=== PATIENT | female | born 1945 | race Caucasian/White ===

== ENCOUNTER 2019-11-08 07:46 | Inpatient (IN) | payer MEDICARE, MEDICAID ==
[~2019-11-08] VITALS: Ht 170.2 cm; Wt 74.8 kg
[2019-11-08] MEDS ORDERED: SODIUM CHLORIDE 0.9% 500 ML IV ONE (08:07)
[2019-11-08] MEDS ORDERED: LEVOFLOXACIN 500MG PREMIX 100 ML IV ONE (08:15)
[2019-11-08] MEDS ORDERED: ACETAMINOPHEN 650MG SUPP PR ONE (08:30)
[2019-11-08 09:34] LABS: HEMATOCRIT. 36.3 % (36.0-48.0); HEMOGLOBIN. 12.1 g/dL (12.0-16.0); MEAN CORPUSCULAR HEMOGLOBIN 26.9 pg (28.0-32.0); MEAN CORPUSCULAR VOLUME 80.9 fL (81.0-99.0); MEAN PLATELET VOLUME 11.8 fl (7.4-10.4); RED BLOOD CELL COUNT 4.49 mill/uL (4.2-5.4); RED CELL DISTRIBUTION WIDTH 15.8 % (11.6-14.6)
[2019-11-08 09:40] LABS: CLARITY URINE TURBID (CLEAR); COLOR URINE ORANGE (YELLOW); KETONES URINE NEGATIVE (NEGATIVE); LEUKOCYTE ESTERASE URINE 3+ (NEGATIVE); NITRITE URINE POSITIVE (NEGATIVE); OCCULT BLOOD URINE 3+ (NEGATIVE); PH URINE 7.5 (4.5-8.0); PROTEIN URINE 3+ (NEGATIVE); SPECIFIC GRAVITY URINE 1.024 (1.005-1.030)
[2019-11-08 09:45] LABS: CHLORIDE 106 mEq/L (98-107)
[2019-11-08 09:54] LABS: CREATINE KINASE 46 IU/L (26-192)
[2019-11-08 09:58] LABS: D-DIMER 6.46 mg/L FEU (<0.50); INR 1.2; PROTHROMBIN TIME 12.5 sec (9.6-11.0)
[2019-11-08 10:31] LABS: PLATELET ESTIMATE MARKEDLY DECREASED
[2019-11-08 10:32] LABS: PLATELET 47 x1000/uL (130-400)
[2019-11-08] MEDS ORDERED: IPRATROPIUM/ALBUTEROL 0.5-3(2.5)MG/3ML NEB NEB PRN (10:45)
[2019-11-08] MEDS ORDERED: LORAZEPAM 2MG/ML CPJ IV PRN (10:45)
[2019-11-08] MEDS ORDERED: GUAIFENESIN 200MG/10ML SUGAR FREE UDC PO PRN (10:45)
[2019-11-08] MEDS ORDERED: ENOXAPARIN 40MG/0.4ML SYR SUBCUT SCH (10:45)
[2019-11-08] MEDS ORDERED: CLONIDINE 0.1MG TABLET PO PRN (10:45)
[2019-11-08] MEDS ORDERED: MORPHINE SULFATE 2 MG/ML CPJ (NOT FOR IM USE) IV PRN (10:45)
[2019-11-08] MEDS ORDERED: MAGNESIUM/ALUMINUM HYDROXIDE/SIMETHICONE 30ML UDC PO PRN (10:45)
[2019-11-08] MEDS ORDERED: HYDROCODONE/ACETAMINOPHEN 5/325MG TABLET PO PRN (10:45)
[2019-11-08] MEDS ORDERED: ACETAMINOPHEN 325MG TABLET PO PRN (10:45)
[2019-11-08] MEDS ORDERED: ONDANSETRON HCL 4MG/2ML INJ IV PRN (10:45)
[2019-11-08] MEDS ORDERED: NA PHOS,M-B/NA PHOS,DI-BA ENEMA 118ML PR PRN (10:45)
[2019-11-08] MEDS ORDERED: DIPHENHYDRAMINE 50MG/ML VIAL IV PRN (10:45)
[2019-11-08] MEDS ORDERED: DOCUSATE SODIUM 100MG CAPSULE PO PRN (10:45)
[2019-11-08] MEDS ORDERED: PIPERACILLIN/TAZ 3.375G PREMIX 50 ML IV NR (11:15)
[2019-11-08] MEDS ORDERED: PIPERACILLIN/TAZOBACTAM 3.375 G in DEXT 5% WATER 100 ML IV SCH (12:30)
[2019-11-08] MEDS: SODIUM CHLORIDE 0.45% 1,000 ML IV SCH (13:47)
[2019-11-08] MEDS ORDERED: PHENYLEPHRINE 10 MG in DEXT 5% WATER 249 ML IV PRN (17:45)
[2019-11-08] MEDS ORDERED: PIPERACILLIN/TAZOBACTAM 3.375 G in DEXT 5% WATER 100 ML IV NR (21:00)
[2019-11-08 21:29] LABS: HEMOGLOBIN 11.1 g/dL (12.0-16.0); INR 1.2; MEAN CORPUSCULAR HEMOGLOBIN 27.9 pg (28.0-32.0); MEAN CORPUSCULAR VOLUME 82.5 fL (81.0-99.0); PLATELET 69 x1000/uL (130-400); PROTHROMBIN TIME 13.4 sec (9.6-11.0); RED CELL DISTRIBUTION WIDTH 16.2 % (11.6-14.6)
[2019-11-08] MEDS ORDERED: VANCOMYCIN 1 G PREMIX 200 ML IV ONE (21:30)
[2019-11-09 04:01] LABS: T4 FREE 1.28 ng/dL (0.76-1.46)
[2019-11-09 04:06] LABS: HEMOGLOBIN. 13.1 g/dL (12.0-16.0); MEAN CORPUSCULAR HEMOGLOBIN 27.1 pg (28.0-32.0); MEAN CORPUSCULAR VOLUME 82.6 fL (81.0-99.0); MEAN PLATELET VOLUME 11.3 fl (7.4-10.4); RED BLOOD CELL COUNT 4.84 mill/uL (4.2-5.4); RED CELL DISTRIBUTION WIDTH 16.1 % (11.6-14.6)
[2019-11-09 04:11] LABS: PLATELET 48 x1000/uL (130-400)
[2019-11-09] MEDS ORDERED: PIPERACILLIN/TAZ 3.375G PREMIX 50 ML IV SCH ×2 (05:00→08:15)
[2019-11-09 06:26] LABS: ATYPICAL LYMPHOCYTES 1; PLATELET ESTIMATE MARKEDLY DECREASED
[2019-11-09 08:00] VITALS: BP 107/58
[2019-11-09] MEDS ORDERED: PIPERACILLIN/TAZOBACTAM 3.375 G in DEXT 5% WATER 100 ML IV SCH (08:15)
[2019-11-09] MEDS ORDERED: ENOXAPARIN 30MG/0.3ML SYR SUBCUT SCH (09:00)
[2019-11-09] MEDS ORDERED: ASPIRIN 81MG EC TABLET PO SCH (09:00)
[2019-11-09] MEDS ORDERED: DEXTROSE 50% WATER 50ML SYRINGE IV PRN (09:30)
[2019-11-09] MEDS: PIPERACILLIN/TAZOBACTAM 2.25 G in DEXTROSE 5% WATER 50 ML IV SCH ×3 (10:44→21:39)
[2019-11-09] MEDS: SODIUM CHLORIDE 0.45% 1,000 ML IV SCH (10:49)
[2019-11-09 10:57] LABS: CHLORIDE 108 mEq/L (98-107)
[2019-11-09 11:04] LABS: LDL CHOLESTEROL 25 mg/dL (5-100)
[2019-11-09 11:05] LABS: HDL CHOLESTEROL 7 mg/dL (40-59)
[2019-11-09] MEDS: BLOOD SUGAR DIAGNOSTIC STRIP TEST SCH ×3 (11:30→21:54)
[2019-11-09] MEDS: VANCOMYCIN 750 MG PREMIX 150 ML IV SCH (12:28)
[2019-11-09] MEDS: INSULIN LISPRO (LOW DOSE) 100 UNITS/ML SUBCUT SCH ×3 (12:34→22:23)
[2019-11-09] MEDS ORDERED: ATOR-2 MT (16:33)
[2019-11-09] MEDS ORDERED: BENZ0.5T43 MT (16:33)
[2019-11-09] MEDS ORDERED: DOCU250C69 PO (16:34)
[2019-11-09] MEDS ORDERED: FOLI0.4T2 MT (16:38)
[2019-11-09] MEDS ORDERED: LAM1 MT (16:38)
[2019-11-09] MEDS ORDERED: MULT1CAP44 MT (16:38)
[2019-11-09] MEDS ORDERED: METO25TA6 MT (16:38)
[2019-11-09 20:00] VITALS: BP 117/44
[2019-11-09] MEDS ORDERED: ATORVASTATIN CALCIUM 10MG TABLET PO SCH (21:00)
[2019-11-09] MEDS: METOPROLOL TARTRATE 25MG TABLET PO SCH (21:00)
[2019-11-09] MEDS: ATORVASTATIN CALCIUM 20MG TABLET PO SCH (21:39)
[2019-11-10] VITALS: BP 102/29
[2019-11-10 04:00] VITALS: BP 143/37
[2019-11-10] MEDS: PIPERACILLIN/TAZOBACTAM 2.25 G in DEXTROSE 5% WATER 50 ML IV SCH ×4 (05:42→22:47)
[2019-11-10 06:17] LABS: BASOPHILS % 0.2 % (0.0-2.0); EOSINOPHILS % 0.8 % (0.0-5.0); HEMATOCRIT. 31.6 % (36.0-48.0); HEMOGLOBIN. 10.6 g/dL (12.0-16.0); LYMPHOCYTES % 8.8 % (20.0-50.0); MEAN CORPUSCULAR HEMOGLOBIN 27.2 pg (28.0-32.0); MEAN CORPUSCULAR VOLUME 81.1 fL (81.0-99.0); MEAN PLATELET VOLUME 10.7 fl (7.4-10.4); MONOCYTES % 7.4 % (2.0-8.0); NEUTROPHILS % 82.8 % (40.0-76.0); RED BLOOD CELL COUNT 3.89 mill/uL (4.2-5.4); RED CELL DISTRIBUTION WIDTH 16.1 % (11.6-14.6)
[2019-11-10] MEDS: VANCOMYCIN 750 MG PREMIX 150 ML IV SCH (06:42)
[2019-11-10] MEDS: BLOOD SUGAR DIAGNOSTIC STRIP TEST SCH ×4 (06:42→21:00)
[2019-11-10 07:31] LABS: PLATELET 49 x1000/uL (130-400)
[2019-11-10 08:00] VITALS: BP 106/62
[2019-11-10] MEDS: SODIUM CHLORIDE 0.45% 1,000 ML IV SCH (08:06)
[2019-11-10] MEDS: INSULIN LISPRO (LOW DOSE) 100 UNITS/ML SUBCUT SCH ×4 (08:36→21:00)
[2019-11-10] MEDS: METOPROLOL TARTRATE 25MG TABLET PO SCH ×2 (08:43→21:00)
[2019-11-10] MEDS ORDERED: POTASSIUM CHLORIDE 20MEQ/PACKET PO SCH (09:00)
[2019-11-10 11:50] LABS: CREATINE KINASE 17 IU/L (26-192)
[2019-11-10 12:00] VITALS: BP 118/27
[2019-11-10 16:00] VITALS: BP 105/26
[2019-11-10 20:00] VITALS: BP 121/39
[2019-11-10] MEDS: ATORVASTATIN CALCIUM 20MG TABLET PO SCH (22:46)
[2019-11-11] VITALS: BP 106/70
[2019-11-11] MEDS: VANCOMYCIN 750 MG PREMIX 150 ML IV SCH ×2 (00:18→22:50)
[2019-11-11] MEDS: SODIUM CHLORIDE 0.45% 1,000 ML IV SCH ×2 (03:42→22:51)
[2019-11-11] MEDS: PIPERACILLIN/TAZOBACTAM 2.25 G in DEXTROSE 5% WATER 50 ML IV SCH ×3 (03:43→19:30)
[2019-11-11 04:00] VITALS: BP 108/38
[2019-11-11] MEDS: INSULIN LISPRO (LOW DOSE) 100 UNITS/ML SUBCUT SCH ×4 (06:30→21:00)
[2019-11-11] MEDS: BLOOD SUGAR DIAGNOSTIC STRIP TEST SCH ×4 (06:31→21:00)
[2019-11-11 07:26] LABS: BASOPHILS % 0.7 % (0.0-2.0); HEMATOCRIT. 32.7 % (36.0-48.0); HEMOGLOBIN. 10.8 g/dL (12.0-16.0); LYMPHOCYTES % 9.9 % (20.0-50.0); MEAN CORPUSCULAR HEMOGLOBIN 27.2 pg (28.0-32.0); MEAN CORPUSCULAR VOLUME 82.3 fL (81.0-99.0); MEAN PLATELET VOLUME 10.2 fl (7.4-10.4); NEUTROPHILS % 81.4 % (40.0-76.0); PLATELET 56 x1000/uL (130-400); RED BLOOD CELL COUNT 3.98 mill/uL (4.2-5.4); RED CELL DISTRIBUTION WIDTH 16.5 % (11.6-14.6)
[2019-11-11 08:00] VITALS: BP 116/41
[2019-11-11] MEDS: METOPROLOL TARTRATE 25MG TABLET PO SCH ×2 (09:00→21:00)
[2019-11-11 12:00] VITALS: BP 117/39
[2019-11-11 16:00] VITALS: BP 105/36
[2019-11-11 21:03] VITALS: BP 117/37
[2019-11-11] MEDS: ATORVASTATIN CALCIUM 20MG TABLET PO SCH (22:51)
[2019-11-12 01:05] VITALS: BP 115/33
[2019-11-12 01:39] VITALS: BP 125/42
[2019-11-12] MEDS: PIPERACILLIN/TAZOBACTAM 2.25 G in DEXTROSE 5% WATER 50 ML IV SCH ×4 (01:43→21:44)
[2019-11-12 05:05] VITALS: BP 117/39
[2019-11-12] MEDS: BLOOD SUGAR DIAGNOSTIC STRIP TEST SCH ×4 (06:51→21:44)
[2019-11-12 06:57] LABS: BASOPHILS % 0.4 % (0.0-2.0); EOSINOPHILS % 1.5 % (0.0-5.0); HEMATOCRIT. 32.2 % (36.0-48.0); HEMOGLOBIN. 10.8 g/dL (12.0-16.0); LYMPHOCYTES % 9.9 % (20.0-50.0); MEAN CORPUSCULAR HEMOGLOBIN 27.5 pg (28.0-32.0); MONOCYTES % 6.8 % (2.0-8.0); NEUTROPHILS % 81.4 % (40.0-76.0); PLATELET 106 x1000/uL (130-400); RED BLOOD CELL COUNT 3.93 mill/uL (4.2-5.4); RED CELL DISTRIBUTION WIDTH 15.7 % (11.6-14.6)
[2019-11-12 08:00] VITALS: BP 124/56
[2019-11-12] MEDS: INSULIN LISPRO (LOW DOSE) 100 UNITS/ML SUBCUT SCH ×4 (09:48→21:44)
[2019-11-12] MEDS: VANCOMYCIN 750 MG PREMIX 150 ML IV SCH (12:13)
[2019-11-12 13:06] LABS: ANTI-NUCLEAR ANTIBODIES DIRECT Negative (Negative)
[2019-11-12 16:00] VITALS: BP 119/36
[2019-11-12 20:00] VITALS: BP 132/49
[2019-11-12] MEDS: ATORVASTATIN CALCIUM 20MG TABLET PO SCH (21:43)
[2019-11-13] VITALS: BP 133/48
[2019-11-13 04:00] VITALS: BP 130/43
[2019-11-13] MEDS: PIPERACILLIN/TAZOBACTAM 2.25 G in DEXTROSE 5% WATER 50 ML IV SCH ×2 (04:24→10:00)
[2019-11-13] MEDS: VANCOMYCIN 750 MG PREMIX 150 ML IV SCH (06:10)
[2019-11-13] MEDS: INSULIN LISPRO (LOW DOSE) 100 UNITS/ML SUBCUT SCH ×4 (06:18→22:37)
[2019-11-13] MEDS: BLOOD SUGAR DIAGNOSTIC STRIP TEST SCH ×4 (06:20→21:00)
[2019-11-13 06:48] LABS: BASOPHILS % 0.4 % (0.0-2.0); EOSINOPHILS % 1.9 % (0.0-5.0); HEMATOCRIT. 33.1 % (36.0-48.0); LYMPHOCYTES % 8.6 % (20.0-50.0); MEAN CORPUSCULAR HEMOGLOBIN 27.7 pg (28.0-32.0); NEUTROPHILS % 83.1 % (40.0-76.0); PLATELET 130 x1000/uL (130-400); RED BLOOD CELL COUNT 3.99 mill/uL (4.2-5.4); RED CELL DISTRIBUTION WIDTH 15.9 % (11.6-14.6)
[2019-11-13 08:00] VITALS: BP 121/61
[2019-11-13 12:00] VITALS: BP 121/54
[2019-11-13] MEDS ORDERED: CEFTRIAXONE 2 G PREMIX 50 ML IV SCH (16:00)
[2019-11-13] MEDS: CEFTRIAXONE 2 G in DEXTROSE 5% WATER 50 ML IV SCH (16:24)
[2019-11-13 20:00] VITALS: BP 136/39
[2019-11-13] MEDS ORDERED: ARIP5TAB58 PO (20:15)
[2019-11-13] MEDS ORDERED: BENZ1TAB7 PO (20:21)
[2019-11-13] MEDS ORDERED: TRAZ-251 PO (20:29)
[2019-11-13 22:00] VITALS: BP 118/40
[2019-11-13] MEDS: ATORVASTATIN CALCIUM 20MG TABLET PO SCH (22:21)
[2019-11-14] VITALS (16 sets, daily range): BP systolic 66–169; BP diastolic 25–96
[2019-11-14 06:57] LABS: BASOPHILS % 0.6 % (0.0-2.0); EOSINOPHILS % 1.6 % (0.0-5.0); HEMATOCRIT. 30.9 % (36.0-48.0); HEMOGLOBIN. 10.3 g/dL (12.0-16.0); LYMPHOCYTES % 10.9 % (20.0-50.0); MEAN CORPUSCULAR HEMOGLOBIN 27.3 pg (28.0-32.0); MEAN PLATELET VOLUME 9.7 fl (7.4-10.4); MONOCYTES % 6.7 % (2.0-8.0); NEUTROPHILS % 80.2 % (40.0-76.0); PLATELET 163 x1000/uL (130-400); RED BLOOD CELL COUNT 3.77 mill/uL (4.2-5.4); RED CELL DISTRIBUTION WIDTH 16.1 % (11.6-14.6)
[2019-11-14] MEDS: BLOOD SUGAR DIAGNOSTIC STRIP TEST SCH ×4 (07:30→21:00)
[2019-11-14] MEDS: INSULIN LISPRO (LOW DOSE) 100 UNITS/ML SUBCUT SCH ×4 (08:00→21:00)
[2019-11-14] MEDS: BENZTROPINE MESYLATE 1MG TABLET PO SCH (09:00)
[2019-11-14] MEDS: ARIPIPRAZOLE 5MG TABLET PO SCH (09:01)
[2019-11-14] MEDS ORDERED: LIDOCAINE HCL 1% 20ML VIAL (Pyxis) INJ ONE (10:19)
[2019-11-14] MEDS: CEFTRIAXONE 2 G in DEXTROSE 5% WATER 50 ML IV SCH (16:50)
[2019-11-14] MEDS: ATORVASTATIN CALCIUM 20MG TABLET PO SCH (22:20)
[2019-11-14] MEDS: TRAZODONE HCL 50MG TABLET PO SCH (22:21)
[2019-11-15] VITALS (12 sets, daily range): BP systolic 93–163; BP diastolic 23–107
[2019-11-15 07:23] LABS: BASOPHILS % 0.5 % (0.0-2.0); EOSINOPHILS % 1.7 % (0.0-5.0); HEMATOCRIT. 28.6 % (36.0-48.0); HEMOGLOBIN. 9.8 g/dL (12.0-16.0); LYMPHOCYTES % 9.9 % (20.0-50.0); MEAN CORPUSCULAR VOLUME 81.6 fL (81.0-99.0); MEAN PLATELET VOLUME 9.8 fl (7.4-10.4); MONOCYTES % 7.1 % (2.0-8.0); NEUTROPHILS % 80.8 % (40.0-76.0); PLATELET 195 x1000/uL (130-400); RED CELL DISTRIBUTION WIDTH 15.7 % (11.6-14.6)
[2019-11-15] MEDS: BENZTROPINE MESYLATE 1MG TABLET PO SCH (08:20)
[2019-11-15] MEDS: ARIPIPRAZOLE 5MG TABLET PO SCH (08:20)
[2019-11-15] MEDS: INSULIN LISPRO (LOW DOSE) 100 UNITS/ML SUBCUT SCH ×4 (08:21→21:17)
[2019-11-15] MEDS: BLOOD SUGAR DIAGNOSTIC STRIP TEST SCH ×4 (08:22→21:16)
[2019-11-15] MEDS: CEFTRIAXONE 2 G in DEXTROSE 5% WATER 50 ML IV SCH (17:06)
[2019-11-15] MEDS: ATORVASTATIN CALCIUM 20MG TABLET PO SCH (21:16)
[2019-11-15] MEDS: TRAZODONE HCL 50MG TABLET PO SCH (21:16)
[2019-11-16] VITALS (10 sets, daily range): BP systolic 121–159; BP diastolic 47–75
[2019-11-16 07:40] LABS: BASOPHILS % 0.4 % (0.0-2.0); EOSINOPHILS % 1.3 % (0.0-5.0); HEMATOCRIT. 30.6 % (36.0-48.0); HEMOGLOBIN. 10.1 g/dL (12.0-16.0); LYMPHOCYTES % 10.6 % (20.0-50.0); MEAN CORPUSCULAR HEMOGLOBIN 27.2 pg (28.0-32.0); MEAN CORPUSCULAR VOLUME 82.2 fL (81.0-99.0); MEAN PLATELET VOLUME 10.3 fl (7.4-10.4); MONOCYTES % 6.5 % (2.0-8.0); NEUTROPHILS % 81.2 % (40.0-76.0); PLATELET 210 x1000/uL (130-400); RED BLOOD CELL COUNT 3.72 mill/uL (4.2-5.4); RED CELL DISTRIBUTION WIDTH 15.9 % (11.6-14.6)
[2019-11-16] MEDS: BLOOD SUGAR DIAGNOSTIC STRIP TEST SCH ×2 (07:49→12:43)
[2019-11-16] MEDS: INSULIN LISPRO (LOW DOSE) 100 UNITS/ML SUBCUT SCH ×2 (07:49→12:52)
[2019-11-16] MEDS: BENZTROPINE MESYLATE 1MG TABLET PO SCH (09:11)
[2019-11-16] MEDS: ARIPIPRAZOLE 5MG TABLET PO SCH (09:11)
[2019-11-16] MEDS: CEFTRIAXONE 2 G in DEXTROSE 5% WATER 50 ML IV SCH (15:59)
== END 2019-11-16 16:57 | DRG 871 ==
LOC: ER 07:46 → 5WST 09:50 → ENRESERV 11-09 07:11 → EDBEDREQ 11-09 07:32 → 5EST 11-13 12:45
PROVIDERS: ADMIT Internal Medicine; ATTEND Internal Medicine
PROC: B54CZZA Ultrasonography of Left Lower Extremity Veins, Guidance (ICD-10-PCS; principal; 2019-11-14)
PROC: 05HY33Z Insertion of Infusion Device into Upper Vein, Percutaneous Approach (ICD-10-PCS; 2019-11-14)
DX: A40.1 Sepsis due to streptococcus, group B (principal); R65.21 Severe sepsis with septic shock; I21.4 Non-ST elevation (NSTEMI) myocardial infarction; N39.0 Urinary tract infection, site not specified; E46 Unspecified protein-calorie malnutrition; I38 Endocarditis, valve unspecified; I44.2 Atrioventricular block, complete; E87.2 Acidosis; N17.9 Acute kidney failure, unspecified; F32.9 Major depressive disorder, single episode, unspecified; F20.9 Schizophrenia, unspecified; F03.90 Unspecified dementia, unspecified severity, without behavioral disturbance, psychotic disturbance, mood disturbance, and anxiety; E78.00 Pure hypercholesterolemia, unspecified; D69.6 Thrombocytopenia, unspecified; E11.9 Type 2 diabetes mellitus without complications; D64.9 Anemia, unspecified; E78.5 Hyperlipidemia, unspecified; G40.909 Epilepsy, unspecified, not intractable, without status epilepticus; I12.9 Hypertensive chronic kidney disease with stage 1 through stage 4 chronic kidney disease, or unspecified chronic kidney disease; E11.22 Type 2 diabetes mellitus with diabetic chronic kidney disease; B96.4 Proteus (mirabilis) (morganii) as the cause of diseases classified elsewhere; N18.9 Chronic kidney disease, unspecified; R31.0 Gross hematuria; I44.0 Atrioventricular block, first degree; I25.10 Atherosclerotic heart disease of native coronary artery without angina pectoris; Z79.899 Other long term (current) drug therapy; Z03.818 Encounter for observation for suspected exposure to other biological agents ruled out
CPT/HCPCS: 36415; 71045; 76770; 76937; 80048; 80053; 80061; 80202; 81003; 82550; 82728; 82962; 83605; 83615; 83880; 84145; 84439; 84481; 84484; 85025; 85027; 85379; 85384; 86038; 86140; 86160; 86850; 86900; 87077; 87186; 87804; 93005; 93306; 99291; C1725; J0696; J1815; J1956; J2543; J3370; J3490; J7040; J7060; U0003

== ENCOUNTER 2019-12-22 02:52 | Inpatient (IN) | payer MEDICARE, MEDICAID ==
[~2019-12-22] VITALS: Ht 172.7 cm; Wt 72.6 kg
[~2019-12-22 02:52] MED LIST: ARIP5TAB58 PO; ATOR-2 MT; BENZ1TAB7 PO; DOCU250C69 PO; FOLI0.4T2 MT; LAM1 MT; METO25TA6 MT; MULT1CAP44 MT; TRAZ-251 PO
[2019-12-22] MEDS ORDERED: PIPERACILLIN/TAZ 3.375G PREMIX 50 ML IV ONE (03:30)
[2019-12-22] MEDS ORDERED: VANCOMYCIN 1 G PREMIX 200 ML IV ONE (03:30)
[2019-12-22 04:58] LABS: BASOPHILS % 0.4 % (0.0-2.0); EOSINOPHILS % 0.6 % (0.0-5.0); HEMATOCRIT. 33.3 % (36.0-48.0); LYMPHOCYTES % 11.1 % (20.0-50.0); MEAN CORPUSCULAR HEMOGLOBIN 26.9 pg (28.0-32.0); MEAN CORPUSCULAR VOLUME 81.8 fL (81.0-99.0); MONOCYTES % 5.4 % (2.0-8.0); NEUTROPHILS % 82.5 % (40.0-76.0); PLATELET 339 x1000/uL (130-400); RED BLOOD CELL COUNT 4.07 mill/uL (4.2-5.4); RED CELL DISTRIBUTION WIDTH 17.2 % (11.6-14.6)
[2019-12-22 05:08] LABS: CHLORIDE 108 mEq/L (98-107)
[2019-12-22 05:15] LABS: INR 1.2; PARTIAL THROMBOPLASTIN TIME 26.8 sec (23.4-31.0); PROTHROMBIN TIME 12.4 sec (9.6-11.0)
[2019-12-22] MEDS ORDERED: ASPIRIN 325MG EC TABLET PO ONE (06:00)
[2019-12-22 06:05] LABS: BG BASE EXCESS -2.6 mmol/L (-2.0-2.0); BG CARBOXYHEMOGLOBIN 0.1 % (0.5-1.5); BG DEOXYHEMOGLOBIN 5.3 % (0.0-5.0); BG FRACTION INSPIRED OXYGEN 50; BG HCO3 ACT 20.2 mmol/L (22.0-26.0); BG METHEMOGLOBIN 0.2 % (0.0-1.5); BG OXYGEN SATURATION 94.7 % (92.0-98.5); BG OXYHEMOGLOBIN 94.4 % (94.0-97.0); BG PCO2 28.5 mmHg (35.0-45.0); BG PH 7.468 (7.350-7.450); BG PO2 83.2 mmHg (75.0-100.0); BG SAMPLE SITE RIGHT BRACHIAL; BG TOTAL HEMOGLOBIN 10.6 g/dL (12.0-18.0); BG VENT MODE VAPOTHERM
[2019-12-22] MEDS ORDERED: ASPIRIN 300MG SUPP PR ONE (06:15)
[2019-12-22] MEDS ORDERED: CEFEPIME 2,000 MG in DEXT 5% WATER 100 ML IV SCH (14:00)
[2019-12-22] MEDS ORDERED: AZITHROMYCIN 500 MG in DEXT 5% WATER 250 ML IV SCH (14:00)
[2019-12-22] MEDS ORDERED: MAGNESIUM/ALUMINUM HYDROXIDE/SIMETHICONE 30ML UDC PO PRN (14:30)
[2019-12-22] MEDS ORDERED: GUAIFENESIN 200MG/10ML SUGAR FREE UDC PO PRN (14:30)
[2019-12-22] MEDS ORDERED: CLONIDINE 0.1MG TABLET PO PRN (14:30)
[2019-12-22] MEDS ORDERED: DEXTROSE 50% WATER 50ML SYRINGE IV PRN (14:30)
[2019-12-22] MEDS ORDERED: ONDANSETRON HCL 4MG/2ML INJ IV PRN (14:30)
[2019-12-22] MEDS ORDERED: VANCOMYCIN 500 MG PREMIX 100 ML IV SCH (16:00)
[2019-12-22] MEDS: ENOXAPARIN 30MG/0.3ML SYR SUBCUT SCH (17:30)
[2019-12-22] MEDS: CEFEPIME 2,000 MG in DEXT 5% WATER 100 ML IV SCH (17:30)
[2019-12-22] MEDS: BLOOD SUGAR DIAGNOSTIC STRIP TEST SCH (18:11)
[2019-12-22] MEDS: INSULIN LISPRO 100 UNITS/ML SUBCUT SCH ×2 (18:20→21:00)
[2019-12-22] MEDS: FAMOTIDINE 20MG TABLET PO SCH (21:00)
[2019-12-22] MEDS: ATORVASTATIN CALCIUM 20MG TABLET PO SCH (21:00)
[2019-12-22] MEDS ORDERED: NOREPINEPHRINE 4MG/250ML PMX IV PRN (21:04)
[2019-12-22] MEDS: IPRATROPIUM/ALBUTEROL 0.5-3(2.5)MG/3ML NEB HHN SCH (22:05)
[2019-12-22] MEDS: SODIUM CHLORIDE 0.9% INJ 3ML FLUSH IVF SCH (22:40)
[2019-12-23 04:58] LABS: HEMOGLOBIN. 10.5 g/dL (12.0-16.0); MEAN CORPUSCULAR HEMOGLOBIN 27.4 pg (28.0-32.0); MEAN CORPUSCULAR VOLUME 81.2 fL (81.0-99.0); MEAN PLATELET VOLUME 9.1 fl (7.4-10.4); PLATELET 290 x1000/uL (130-400); RED BLOOD CELL COUNT 3.82 mill/uL (4.2-5.4); RED CELL DISTRIBUTION WIDTH 17.5 % (11.6-14.6)
[2019-12-23 05:05] LABS: CHLORIDE 109 mEq/L (98-107)
[2019-12-23] MEDS: ARIPIPRAZOLE 5MG TABLET PO SCH (09:55)
[2019-12-23] MEDS: VANCOMYCIN 500 MG PREMIX 100 ML IV SCH (09:55)
[2019-12-23 10:22] LABS: NUCLEATED RED BLOOD CELLS 1 /100 WBC; PLATELET ESTIMATE NORMAL
[2019-12-23] MEDS ORDERED: IPRATROPIUM/ALBUTEROL 0.5-3(2.5)MG/3ML NEB HHN PRN (10:30)
[2019-12-23] MEDS ORDERED: NOREPINEPHRINE 4 MG in DEXT 5% WATER 246 ML IV PRN (10:37)
[2019-12-23 10:57] LABS: BG BASE EXCESS -3.3 mmol/L (-2.0-2.0); BG CARBOXYHEMOGLOBIN 0.5 % (0.5-1.5); BG DEOXYHEMOGLOBIN 3.5 % (0.0-5.0); BG FRACTION INSPIRED OXYGEN 54; BG HCO3 ACT 20.1 mmol/L (22.0-26.0); BG METHEMOGLOBIN 0.2 % (0.0-1.5); BG OXYGEN SATURATION 96.5 % (92.0-98.5); BG OXYHEMOGLOBIN 95.8 % (94.0-97.0); BG PCO2 30.3 mmHg (35.0-45.0); BG PH 7.439 (7.350-7.450); BG PO2 96.4 mmHg (75.0-100.0); BG SAMPLE SITE RIGHT BRACHIAL; BG TOTAL HEMOGLOBIN 10.6 g/dL (12.0-18.0); BG VENT MODE NASAL CANNULA
[2019-12-23] MEDS ORDERED: AZITHROMYCIN 500MG in DEXTROSE 5% WATER 250ML IV SCH (15:00)
[2019-12-23] MEDS: CEFEPIME 2,000 MG in DEXT 5% WATER 100 ML IV SCH (15:00)
[2019-12-23] MEDS: ENOXAPARIN 30MG/0.3ML SYR SUBCUT SCH (15:00)
[2019-12-23] MEDS: IPRATROPIUM/ALBUTEROL 0.5-3(2.5)MG/3ML NEB HHN SCH (15:35)
[2019-12-23] MEDS ORDERED: FUROSEMIDE 40MG/4ML VIAL IVP NR (17:45)
[2019-12-23] MEDS: NITROGLYCERIN OINT 1GM/INCH UDPKT TD SCH (18:00)
[2019-12-23] MEDS: INSULIN LISPRO 100 UNITS/ML SUBCUT SCH (20:45)
[2019-12-23] MEDS: BLOOD SUGAR DIAGNOSTIC STRIP TEST SCH (20:46)
[2019-12-23] MEDS: METRONIDAZOLE 500MG TABLET PO SCH (21:00)
[2019-12-24] VITALS (8 sets, daily range): BP systolic 96–132; BP diastolic 50–99
[2019-12-24] MEDS: IPRATROPIUM/ALBUTEROL 0.5-3(2.5)MG/3ML NEB HHN SCH ×3 (01:13→20:00)
[2019-12-24 01:21] LABS: HEMATOCRIT. 30.8 % (36.0-48.0); HEMOGLOBIN. 10.3 g/dL (12.0-16.0); MEAN CORPUSCULAR HEMOGLOBIN 27.3 pg (28.0-32.0); MEAN CORPUSCULAR VOLUME 81.4 fL (81.0-99.0); PLATELET 304 x1000/uL (130-400); RED BLOOD CELL COUNT 3.78 mill/uL (4.2-5.4); RED CELL DISTRIBUTION WIDTH 17.4 % (11.6-14.6)
[2019-12-24 04:55] LABS: NUCLEATED RED BLOOD CELLS 1 /100 WBC; PLATELET ESTIMATE NORMAL
[2019-12-24 05:16] LABS: BASOPHILS % 0.8 % (0.0-2.0); EOSINOPHILS % 4.2 % (0.0-5.0); HEMOGLOBIN. 10.2 g/dL (12.0-16.0); LYMPHOCYTES % 7.3 % (20.0-50.0); MEAN CORPUSCULAR HEMOGLOBIN 26.8 pg (28.0-32.0); MEAN CORPUSCULAR VOLUME 81.4 fL (81.0-99.0); MEAN PLATELET VOLUME 9.1 fl (7.4-10.4); MONOCYTES % 7.7 % (2.0-8.0); PLATELET 291 x1000/uL (130-400); RED BLOOD CELL COUNT 3.81 mill/uL (4.2-5.4); RED CELL DISTRIBUTION WIDTH 17.6 % (11.6-14.6)
[2019-12-24 08:48] LABS: BG BASE EXCESS -3.5 mmol/L (-2.0-2.0); BG CARBOXYHEMOGLOBIN 0.8 % (0.5-1.5); BG DEOXYHEMOGLOBIN 2.9 % (0.0-5.0); BG FRACTION INSPIRED OXYGEN 52; BG HCO3 ACT 19.3 mmol/L (22.0-26.0); BG METHEMOGLOBIN 0.2 % (0.0-1.5); BG OXYGEN SATURATION 97.1 % (92.0-98.5); BG OXYHEMOGLOBIN 96.1 % (94.0-97.0); BG PCO2 27.8 mmHg (35.0-45.0); BG PH 7.459 (7.350-7.450); BG PO2 100.7 mmHg (75.0-100.0); BG SAMPLE SITE RIGHT BRACHIAL; BG TOTAL HEMOGLOBIN 10.6 g/dL (12.0-18.0); BG VENT MODE NASAL CANNULA
[2019-12-24] MEDS: NITROGLYCERIN OINT 1GM/INCH UDPKT TD SCH ×3 (11:24→23:39)
[2019-12-24] MEDS: METRONIDAZOLE 500MG TABLET PO SCH ×2 (11:24→21:04)
[2019-12-24] MEDS: ARIPIPRAZOLE 5MG TABLET PO SCH (11:24)
[2019-12-24] MEDS: BLOOD SUGAR DIAGNOSTIC STRIP TEST SCH ×3 (11:37→21:05)
[2019-12-24] MEDS: VANCOMYCIN 500 MG PREMIX 100 ML IV SCH (12:08)
[2019-12-24] MEDS: INSULIN LISPRO 100 UNITS/ML SUBCUT SCH ×3 (13:00→21:14)
[2019-12-24] MEDS: SODIUM CHLORIDE 0.9% INJ 3ML FLUSH IVF SCH ×2 (14:00→22:00)
[2019-12-24] MEDS: CEFEPIME 2,000 MG in DEXT 5% WATER 100 ML IV SCH (15:43)
[2019-12-24] MEDS: ENOXAPARIN 30MG/0.3ML SYR SUBCUT SCH (15:44)
[2019-12-24] MEDS: LORAZEPAM 2MG/ML CPJ IV PRN (17:08)
[2019-12-24] MEDS: ATORVASTATIN CALCIUM 20MG TABLET PO SCH ×2 (21:00→21:27)
[2019-12-24] MEDS: FAMOTIDINE 20MG TABLET PO SCH ×2 (21:00→21:28)
[2019-12-24] MEDS: LINEZOLID 600MG TABLET PO SCH (21:12)
[2019-12-25] VITALS (12 sets, daily range): BP systolic 90–124; BP diastolic 31–78
[2019-12-25] MEDS: IPRATROPIUM/ALBUTEROL 0.5-3(2.5)MG/3ML NEB HHN SCH ×5 (00:08→20:56)
[2019-12-25] MEDS: NITROGLYCERIN OINT 1GM/INCH UDPKT TD SCH ×2 (05:21→12:00)
[2019-12-25] MEDS: SODIUM CHLORIDE 0.9% INJ 3ML FLUSH IVF SCH ×3 (05:22→21:16)
[2019-12-25] MEDS: BLOOD SUGAR DIAGNOSTIC STRIP TEST SCH ×4 (07:57→21:14)
[2019-12-25] MEDS: ARIPIPRAZOLE 5MG TABLET PO SCH (08:58)
[2019-12-25] MEDS: INSULIN LISPRO 100 UNITS/ML SUBCUT SCH ×4 (08:58→21:29)
[2019-12-25] MEDS: METRONIDAZOLE 500MG TABLET PO SCH ×2 (08:58→21:14)
[2019-12-25] MEDS: LINEZOLID 600MG TABLET PO SCH ×2 (10:27→21:14)
[2019-12-25] MEDS: ENOXAPARIN 30MG/0.3ML SYR SUBCUT SCH (15:53)
[2019-12-25] MEDS: CEFEPIME 2,000 MG in DEXT 5% WATER 100 ML IV SCH (15:54)
[2019-12-25] MEDS: FAMOTIDINE 20MG TABLET PO SCH (21:14)
[2019-12-25] MEDS: ATORVASTATIN CALCIUM 20MG TABLET PO SCH (21:14)
[2019-12-26] VITALS (12 sets, daily range): BP systolic 90–134; BP diastolic 51–77
[2019-12-26] MEDS: IPRATROPIUM/ALBUTEROL 0.5-3(2.5)MG/3ML NEB HHN SCH ×5 (04:00→20:41)
[2019-12-26 05:56] LABS: BASOPHILS % 0.6 % (0.0-2.0); EOSINOPHILS % 4.2 % (0.0-5.0); HEMATOCRIT. 31.2 % (36.0-48.0); HEMOGLOBIN. 10.2 g/dL (12.0-16.0); MEAN CORPUSCULAR HEMOGLOBIN 27.3 pg (28.0-32.0); MEAN CORPUSCULAR VOLUME 83.5 fL (81.0-99.0); MONOCYTES % 5.7 % (2.0-8.0); NEUTROPHILS % 81.5 % (40.0-76.0); PLATELET 297 x1000/uL (130-400); RED BLOOD CELL COUNT 3.74 mill/uL (4.2-5.4)
[2019-12-26] MEDS: SODIUM CHLORIDE 0.9% INJ 3ML FLUSH IVF SCH ×3 (06:44→20:48)
[2019-12-26] MEDS: BLOOD SUGAR DIAGNOSTIC STRIP TEST SCH ×4 (08:00→20:48)
[2019-12-26] MEDS: INSULIN LISPRO 100 UNITS/ML SUBCUT SCH ×4 (08:14→20:48)
[2019-12-26] MEDS: METRONIDAZOLE 500MG TABLET PO SCH ×2 (08:14→20:47)
[2019-12-26] MEDS: ARIPIPRAZOLE 5MG TABLET PO SCH (08:14)
[2019-12-26] MEDS: LINEZOLID 600MG TABLET PO SCH ×2 (09:31→20:47)
[2019-12-26] MEDS: LORAZEPAM 2MG/ML CPJ IV PRN ×2 (11:41→19:26)
[2019-12-26] MEDS: INSULIN GLARGINE UD 100 UNITS/ML SYR SUBCUT SCH (13:53)
[2019-12-26] MEDS: ENOXAPARIN 30MG/0.3ML SYR SUBCUT SCH (14:36)
[2019-12-26] MEDS: CEFEPIME 2,000 MG in DEXT 5% WATER 100 ML IV SCH (15:30)
[2019-12-26] MEDS: FLUCONAZOLE 100MG TABLET PO SCH (17:34)
[2019-12-26] MEDS: FAMOTIDINE 20MG TABLET PO SCH (20:47)
[2019-12-26] MEDS: ATORVASTATIN CALCIUM 20MG TABLET PO SCH (20:47)
[2019-12-26] MEDS: MIDODRINE HCL 2.5MG TABLET PO PRN (20:51)
[2019-12-27] VITALS (11 sets, daily range): BP systolic 90–127; BP diastolic 47–79
[2019-12-27] MEDS: IPRATROPIUM/ALBUTEROL 0.5-3(2.5)MG/3ML NEB HHN SCH ×6 (00:23→20:44)
[2019-12-27] MEDS: SODIUM CHLORIDE 0.9% INJ 3ML FLUSH IVF SCH ×3 (06:12→22:00)
[2019-12-27 06:33] LABS: BASOPHILS % 0.7 % (0.0-2.0); EOSINOPHILS % 4.8 % (0.0-5.0); HEMATOCRIT. 28.6 % (36.0-48.0); HEMOGLOBIN. 9.4 g/dL (12.0-16.0); LYMPHOCYTES % 8.6 % (20.0-50.0); MEAN CORPUSCULAR HEMOGLOBIN 26.9 pg (28.0-32.0); MEAN CORPUSCULAR VOLUME 82.1 fL (81.0-99.0); MEAN PLATELET VOLUME 9.2 fl (7.4-10.4); MONOCYTES % 6.5 % (2.0-8.0); NEUTROPHILS % 79.4 % (40.0-76.0); PLATELET 247 x1000/uL (130-400); RED BLOOD CELL COUNT 3.49 mill/uL (4.2-5.4); RED CELL DISTRIBUTION WIDTH 18.1 % (11.6-14.6)
[2019-12-27] MEDS: BLOOD SUGAR DIAGNOSTIC STRIP TEST SCH ×4 (07:36→20:29)
[2019-12-27] MEDS: ARIPIPRAZOLE 5MG TABLET PO SCH (08:16)
[2019-12-27] MEDS: FLUCONAZOLE 100MG TABLET PO SCH (08:16)
[2019-12-27] MEDS: INSULIN LISPRO 100 UNITS/ML SUBCUT SCH ×4 (08:16→20:31)
[2019-12-27] MEDS: METRONIDAZOLE 500MG TABLET PO SCH ×2 (08:16→20:29)
[2019-12-27] MEDS: LINEZOLID 600MG TABLET PO SCH ×2 (08:16→21:00)
[2019-12-27] MEDS: LORAZEPAM 2MG/ML CPJ IV PRN ×2 (08:48→17:51)
[2019-12-27] MEDS: INSULIN GLARGINE UD 100 UNITS/ML SYR SUBCUT SCH (10:10)
[2019-12-27] MEDS: MIDODRINE HCL 2.5MG TABLET PO PRN (10:11)
[2019-12-27] MEDS: CEFEPIME 2,000 MG in DEXT 5% WATER 100 ML IV SCH (13:42)
[2019-12-27] MEDS: ENOXAPARIN 30MG/0.3ML SYR SUBCUT SCH (15:06)
[2019-12-27] MEDS: DEXTROSE 5% WATER 1,000 ML IV SCH (16:15)
[2019-12-27] MEDS ORDERED: MIDODRINE HCL 5MG TABLET PO SCH (17:00)
[2019-12-27] MEDS: ATORVASTATIN CALCIUM 20MG TABLET PO SCH (20:29)
[2019-12-27] MEDS: FAMOTIDINE 20MG TABLET PO SCH (20:29)
[2019-12-28] VITALS (36 sets, daily range): BP systolic 85–122; BP diastolic 40–79
[2019-12-28] MEDS: IPRATROPIUM/ALBUTEROL 0.5-3(2.5)MG/3ML NEB HHN SCH ×5 (00:45→20:18)
[2019-12-28 02:28] LABS: BG BASE EXCESS -10.8 mmol/L (-2.0-2.0); BG CARBOXYHEMOGLOBIN 0.5 % (0.5-1.5); BG DEOXYHEMOGLOBIN 0.3 % (0.0-5.0); BG FRACTION INSPIRED OXYGEN 100; BG HCO3 ACT 14.5 mmol/L (22.0-26.0); BG METHEMOGLOBIN 0.3 % (0.0-1.5); BG OXYGEN SATURATION 99.7 % (92.0-98.5); BG OXYHEMOGLOBIN 98.9 % (94.0-97.0); BG PCO2 30.5 mmHg (35.0-45.0); BG PH 7.296 (7.350-7.450); BG SAMPLE SITE RIGHT BRACHIAL; BG TOTAL HEMOGLOBIN 10.9 g/dL (12.0-18.0); BG VENT MODE MASK - NRB
[2019-12-28 04:29] LABS: BG BASE EXCESS -2.7 mmol/L (-2.0-2.0); BG BILEVEL POS AIRWAY PRESSURE 18/5; BG CARBOXYHEMOGLOBIN 0.6 % (0.5-1.5); BG DEOXYHEMOGLOBIN 0.3 % (0.0-5.0); BG FRACTION INSPIRED OXYGEN 100; BG HCO3 ACT 20.8 mmol/L (22.0-26.0); BG METHEMOGLOBIN 0.4 % (0.0-1.5); BG OXYGEN SATURATION 99.7 % (92.0-98.5); BG OXYHEMOGLOBIN 98.7 % (94.0-97.0); BG PCO2 32.3 mmHg (35.0-45.0); BG PH 7.427 (7.350-7.450); BG PO2 372.4 mmHg (75.0-100.0); BG SAMPLE SITE RIGHT RADIAL; BG TOTAL HEMOGLOBIN 12.3 g/dL (12.0-18.0); BG VENT MODE MASK - BIPAP; BG VENT RATE 20 set
[2019-12-28] MEDS ORDERED: SODIUM CHLORIDE 0.9% 250 ML IV NR (04:45)
[2019-12-28] MEDS: SODIUM CHLORIDE 0.9% INJ 3ML FLUSH IVF SCH ×3 (05:19→20:57)
[2019-12-28] MEDS: MIDODRINE HCL 5MG TABLET PO SCH ×3 (06:16→20:59)
[2019-12-28] MEDS: DEXTROSE 5% WATER 1,000 ML IV SCH (06:32)
[2019-12-28] MEDS: BLOOD SUGAR DIAGNOSTIC STRIP TEST SCH ×4 (07:47→20:57)
[2019-12-28] MEDS: INSULIN LISPRO 100 UNITS/ML SUBCUT SCH ×4 (07:54→20:57)
[2019-12-28] MEDS: METRONIDAZOLE 500MG TABLET PO SCH (08:05)
[2019-12-28] MEDS: FLUCONAZOLE 100MG TABLET PO SCH (08:05)
[2019-12-28] MEDS: ARIPIPRAZOLE 5MG TABLET PO SCH (08:05)
[2019-12-28] MEDS ORDERED: MIDODRINE HCL 5MG TABLET PO SCH (09:00)
[2019-12-28 09:30] LABS: HEMOGLOBIN. 9.3 g/dL (12.0-16.0); MEAN CORPUSCULAR VOLUME 84.1 fL (81.0-99.0); MEAN PLATELET VOLUME 10.2 fl (7.4-10.4); PLATELET 234 x1000/uL (130-400); RED BLOOD CELL COUNT 3.45 mill/uL (4.2-5.4); RED CELL DISTRIBUTION WIDTH 18.3 % (11.6-14.6)
[2019-12-28] MEDS: LINEZOLID 600MG TABLET PO SCH ×2 (10:12→20:57)
[2019-12-28] MEDS: INSULIN GLARGINE UD 100 UNITS/ML SYR SUBCUT SCH (10:12)
[2019-12-28 11:29] LABS: PLATELET ESTIMATE NORMAL
[2019-12-28] MEDS: ENOXAPARIN 30MG/0.3ML SYR SUBCUT SCH (14:02)
[2019-12-28 14:07] LABS: BG BILEVEL POS AIRWAY PRESSURE 15/5; BG CARBOXYHEMOGLOBIN 0.4 % (0.5-1.5); BG DEOXYHEMOGLOBIN 0.8 % (0.0-5.0); BG FRACTION INSPIRED OXYGEN 50; BG HCO3 ACT 18.9 mmol/L (22.0-26.0); BG METHEMOGLOBIN 0.4 % (0.0-1.5); BG OXYGEN SATURATION 99.2 % (92.0-98.5); BG OXYHEMOGLOBIN 98.4 % (94.0-97.0); BG PCO2 27.5 mmHg (35.0-45.0); BG PH 7.454 (7.350-7.450); BG PO2 179.8 mmHg (75.0-100.0); BG SAMPLE SITE RIGHT BRACHIAL; BG TOTAL HEMOGLOBIN 10.3 g/dL (12.0-18.0); BG VENT MODE MASK - BIPAP
[2019-12-28] MEDS: MEROPENEM 1,000 MG in SODIUM CHLORIDE 0.9% 100 ML IV SCH (16:17)
[2019-12-28] MEDS: ATORVASTATIN CALCIUM 20MG TABLET PO SCH (20:57)
[2019-12-28] MEDS: FAMOTIDINE 20MG TABLET PO SCH (20:57)
[2019-12-29] VITALS (46 sets, daily range): BP systolic 56–122; BP diastolic 26–78
[2019-12-29] MEDS: IPRATROPIUM/ALBUTEROL 0.5-3(2.5)MG/3ML NEB HHN SCH ×6 (00:18→22:44)
[2019-12-29] MEDS: MEROPENEM 1,000 MG in SODIUM CHLORIDE 0.9% 100 ML IV SCH ×2 (04:00→16:43)
[2019-12-29 05:36] LABS: HEMATOCRIT. 29.5 % (36.0-48.0); HEMOGLOBIN. 9.8 g/dL (12.0-16.0); MEAN CORPUSCULAR HEMOGLOBIN 27.7 pg (28.0-32.0); MEAN CORPUSCULAR VOLUME 83.7 fL (81.0-99.0); MEAN PLATELET VOLUME 9.2 fl (7.4-10.4); PLATELET 285 x1000/uL (130-400); RED BLOOD CELL COUNT 3.52 mill/uL (4.2-5.4); RED CELL DISTRIBUTION WIDTH 18.7 % (11.6-14.6)
[2019-12-29] MEDS: MIDODRINE HCL 5MG TABLET PO SCH ×3 (06:16→22:55)
[2019-12-29] MEDS: SODIUM CHLORIDE 0.9% INJ 3ML FLUSH IVF SCH ×3 (06:16→22:00)
[2019-12-29] MEDS: LINEZOLID 600MG TABLET PO SCH ×2 (08:08→20:16)
[2019-12-29] MEDS: ARIPIPRAZOLE 5MG TABLET PO SCH (08:08)
[2019-12-29] MEDS: BLOOD SUGAR DIAGNOSTIC STRIP TEST SCH ×4 (08:08→23:00)
[2019-12-29] MEDS: FLUCONAZOLE 100MG TABLET PO SCH (08:08)
[2019-12-29] MEDS: INSULIN LISPRO 100 UNITS/ML SUBCUT SCH ×4 (08:29→23:01)
[2019-12-29] MEDS: DIPHENHYDRAMINE 50MG/ML VIAL IV PRN ×3 (08:38→20:16)
[2019-12-29 09:34] LABS: BG BASE EXCESS -3.2 mmol/L (-2.0-2.0); BG BILEVEL POS AIRWAY PRESSURE 18/5; BG CARBOXYHEMOGLOBIN 0.8 % (0.5-1.5); BG DEOXYHEMOGLOBIN 3.9 % (0.0-5.0); BG FRACTION INSPIRED OXYGEN 30; BG HCO3 ACT 20.1 mmol/L (22.0-26.0); BG METHEMOGLOBIN 0.3 % (0.0-1.5); BG OXYGEN SATURATION 96.1 % (92.0-98.5); BG PCO2 29.8 mmHg (35.0-45.0); BG PH 7.446 (7.350-7.450); BG PO2 86.9 mmHg (75.0-100.0); BG SAMPLE SITE RIGHT RADIAL; BG TOTAL HEMOGLOBIN 10.4 g/dL (12.0-18.0); BG VENT MODE MASK - BIPAP; BG VENT RATE 20 set
[2019-12-29 09:36] LABS: PLATELET ESTIMATE NORMAL
[2019-12-29] MEDS: INSULIN GLARGINE UD 100 UNITS/ML SYR SUBCUT SCH (10:23)
[2019-12-29] MEDS ORDERED: ENOXAPARIN 40MG/0.4ML SYR SUBCUT SCH (16:00)
[2019-12-29] MEDS: FAMOTIDINE 20MG TABLET PO SCH (20:16)
[2019-12-29] MEDS: ATORVASTATIN CALCIUM 20MG TABLET PO SCH (20:17)
[2019-12-29] MEDS ORDERED: INSULIN GLARGINE UD 100 UNITS/ML SYR SUBCUT SCH (22:00)
[2019-12-30] VITALS (11 sets, daily range): BP systolic 91–125; BP diastolic 55–97
[2019-12-30] MEDS: MEROPENEM 1,000 MG in SODIUM CHLORIDE 0.9% 100 ML IV SCH ×3 (04:30→16:44)
[2019-12-30 05:12] LABS: BASOPHILS % 0.9 % (0.0-2.0); EOSINOPHILS % 4.4 % (0.0-5.0); HEMATOCRIT. 32.6 % (36.0-48.0); HEMOGLOBIN. 10.6 g/dL (12.0-16.0); LYMPHOCYTES % 11.7 % (20.0-50.0); MEAN CORPUSCULAR HEMOGLOBIN 27.5 pg (28.0-32.0); MEAN CORPUSCULAR VOLUME 84.4 fL (81.0-99.0); MEAN PLATELET VOLUME 9.2 fl (7.4-10.4); MONOCYTES % 5.3 % (2.0-8.0); NEUTROPHILS % 77.7 % (40.0-76.0); PLATELET 315 x1000/uL (130-400); RED BLOOD CELL COUNT 3.86 mill/uL (4.2-5.4); RED CELL DISTRIBUTION WIDTH 18.8 % (11.6-14.6)
[2019-12-30] MEDS: BLOOD SUGAR DIAGNOSTIC STRIP TEST SCH ×4 (05:15→23:15)
[2019-12-30] MEDS: SODIUM CHLORIDE 0.9% INJ 3ML FLUSH IVF SCH ×3 (05:16→21:59)
[2019-12-30] MEDS: MIDODRINE HCL 5MG TABLET PO SCH ×3 (05:25→22:00)
[2019-12-30] MEDS: INSULIN LISPRO 100 UNITS/ML SUBCUT SCH ×4 (05:38→23:15)
[2019-12-30] MEDS: IPRATROPIUM/ALBUTEROL 0.5-3(2.5)MG/3ML NEB HHN SCH ×5 (06:01→20:13)
[2019-12-30] MEDS: FLUCONAZOLE 100MG TABLET PO SCH (09:17)
[2019-12-30] MEDS: ARIPIPRAZOLE 5MG TABLET PO SCH (09:17)
[2019-12-30] MEDS: INSULIN GLARGINE UD 100 UNITS/ML SYR SUBCUT SCH ×2 (11:43→22:00)
[2019-12-30] MEDS: DIPHENHYDRAMINE 50MG/ML VIAL IV PRN (15:48)
[2019-12-30 16:14] LABS: BG BILEVEL POS AIRWAY PRESSURE 18/5; BG CARBOXYHEMOGLOBIN 0.9 % (0.5-1.5); BG DEOXYHEMOGLOBIN 5.2 % (0.0-5.0); BG FRACTION INSPIRED OXYGEN 30; BG HCO3 ACT 18.2 mmol/L (22.0-26.0); BG METHEMOGLOBIN 0.5 % (0.0-1.5); BG OXYGEN SATURATION 94.7 % (92.0-98.5); BG OXYHEMOGLOBIN 93.4 % (94.0-97.0); BG PCO2 31.7 mmHg (35.0-45.0); BG PH 7.376 (7.350-7.450); BG PO2 85.2 mmHg (75.0-100.0); BG SAMPLE SITE LEFT RADIAL; BG TIDAL VOLUME(mL) 474 mL; BG TOTAL HEMOGLOBIN 11.6 g/dL (12.0-18.0); BG VENT MODE MASK - BIPAP; BG VENT RATE 20 set
[2019-12-30] MEDS: DEXT 5%/0.45% NACL 1000ML 1,000 ML IV SCH (18:34)
[2019-12-30] MEDS: ATORVASTATIN CALCIUM 20MG TABLET PO SCH (21:00)
[2019-12-30] MEDS: PANTOPRAZOLE SODIUM 40 MG/VIAL IV SCH (21:58)
[2019-12-31] VITALS (13 sets, daily range): BP systolic 89–154; BP diastolic 17–88
[2019-12-31] MEDS: IPRATROPIUM/ALBUTEROL 0.5-3(2.5)MG/3ML NEB HHN SCH ×6 (00:33→22:27)
[2019-12-31] MEDS: BLOOD SUGAR DIAGNOSTIC STRIP TEST SCH ×4 (05:33→23:47)
[2019-12-31] MEDS: MIDODRINE HCL 5MG TABLET PO SCH ×4 (05:34→22:25)
[2019-12-31] MEDS: INSULIN LISPRO 100 UNITS/ML SUBCUT SCH ×4 (05:35→23:52)
[2019-12-31] MEDS: SODIUM CHLORIDE 0.9% INJ 3ML FLUSH IVF SCH ×3 (05:36→22:25)
[2019-12-31 06:42] LABS: INR 1.2; PARTIAL THROMBOPLASTIN TIME 21.6 sec (23.4-31.0); PROTHROMBIN TIME 12.1 sec (9.6-11.0)
[2019-12-31] MEDS: DEXT 5%/0.45% NACL 1000ML 1,000 ML IV SCH (06:44)
[2019-12-31] MEDS: DIPHENHYDRAMINE 50MG/ML VIAL IV PRN (08:13)
[2019-12-31] MEDS: PANTOPRAZOLE SODIUM 40 MG/VIAL IV SCH ×2 (08:16→22:25)
[2019-12-31] MEDS: FLUCONAZOLE 100MG TABLET PO SCH ×2 (08:23→11:31)
[2019-12-31] MEDS: ARIPIPRAZOLE 5MG TABLET PO SCH (08:23)
[2019-12-31 08:36] LABS: BASOPHILS % 1.1 % (0.0-2.0); EOSINOPHILS % 3.1 % (0.0-5.0); HEMATOCRIT. 36.6 % (36.0-48.0); HEMOGLOBIN. 11.7 g/dL (12.0-16.0); LYMPHOCYTES % 15.5 % (20.0-50.0); MEAN CORPUSCULAR HEMOGLOBIN 27.4 pg (28.0-32.0); MEAN CORPUSCULAR VOLUME 85.8 fL (81.0-99.0); MONOCYTES % 7.4 % (2.0-8.0); NEUTROPHILS % 72.9 % (40.0-76.0); RED BLOOD CELL COUNT 4.27 mill/uL (4.2-5.4); RED CELL DISTRIBUTION WIDTH 19.3 % (11.6-14.6)
[2019-12-31] MEDS: INSULIN GLARGINE UD 100 UNITS/ML SYR SUBCUT SCH ×2 (09:45→22:26)
[2019-12-31] MEDS: LORAZEPAM 2MG/ML CPJ IV PRN (09:55)
[2019-12-31] MEDS ORDERED: METOPROLOL TARTRATE 5MG/5ML VIAL IV PRN (10:30)
[2019-12-31] MEDS ORDERED: SODIUM POLYSTYRENE SULFONATE 15 G/60 ML BOT PO NR (11:30)
[2019-12-31] MEDS ORDERED: SODIUM POLYSTYRENE SULFONATE 15 G/60 ML BOT PR NR (11:30)
[2019-12-31] MEDS ORDERED: FUROSEMIDE 40MG/4ML VIAL IVP NR (11:30)
[2019-12-31 11:44] LABS: BG BASE EXCESS -2.7 mmol/L (-2.0-2.0); BG CARBOXYHEMOGLOBIN 0.4 % (0.5-1.5); BG DEOXYHEMOGLOBIN 8.8 % (0.0-5.0); BG FRACTION INSPIRED OXYGEN 40; BG HCO3 ACT 22.2 mmol/L (22.0-26.0); BG METHEMOGLOBIN 0.4 % (0.0-1.5); BG OXYGEN SATURATION 91.1 % (92.0-98.5); BG OXYHEMOGLOBIN 90.4 % (94.0-97.0); BG PCO2 38.8 mmHg (35.0-45.0); BG PH 7.376 (7.350-7.450); BG PO2 72.4 mmHg (75.0-100.0); BG SAMPLE SITE LEFT RADIAL; BG TOTAL HEMOGLOBIN 10.9 g/dL (12.0-18.0); BG VENT MODE VAPOTHERM
[2019-12-31] MEDS ORDERED: MIDODRINE HCL 5MG TABLET PO SCH (14:00)
[2019-12-31] MEDS: ACETYLCYSTEINE 100MG/ML 10% VIAL 4ML INH SCH (16:01)
[2019-12-31] MEDS: FUROSEMIDE 40MG/4ML VIAL IVP SCH (16:25)
[2019-12-31] MEDS: MEROPENEM 1,000 MG in SODIUM CHLORIDE 0.9% 100 ML IV SCH (16:31)
[2019-12-31] MEDS: QUETIAPINE FUMARATE 25MG TABLET PO SCH (22:25)
[2019-12-31] MEDS: ATORVASTATIN CALCIUM 20MG TABLET PO SCH (22:32)
[2020-01-01] VITALS (12 sets, daily range): BP systolic 99–143; BP diastolic 57–127
[2020-01-01] MEDS: ACETYLCYSTEINE 100MG/ML 10% VIAL 4ML INH SCH ×4 (02:38→22:00)
[2020-01-01] MEDS: IPRATROPIUM/ALBUTEROL 0.5-3(2.5)MG/3ML NEB HHN SCH ×6 (02:38→21:10)
[2020-01-01] MEDS: DEXT 5%/0.45% NACL 1000ML 1,000 ML IV SCH (04:15)
[2020-01-01] MEDS: MEROPENEM 1,000 MG in SODIUM CHLORIDE 0.9% 100 ML IV SCH ×2 (04:16→17:36)
[2020-01-01] MEDS: SODIUM CHLORIDE 0.9% INJ 3ML FLUSH IVF SCH ×3 (05:16→23:37)
[2020-01-01] MEDS: BLOOD SUGAR DIAGNOSTIC STRIP TEST SCH ×3 (05:16→18:49)
[2020-01-01] MEDS: INSULIN LISPRO 100 UNITS/ML SUBCUT SCH ×3 (05:16→18:53)
[2020-01-01] MEDS: MIDODRINE HCL 5MG TABLET PO SCH ×3 (05:16→22:00)
[2020-01-01] MEDS: QUETIAPINE FUMARATE 25MG TABLET PO SCH ×2 (08:50→23:33)
[2020-01-01] MEDS: PANTOPRAZOLE SODIUM 40 MG/VIAL IV SCH ×2 (08:50→23:33)
[2020-01-01] MEDS: ARIPIPRAZOLE 5MG TABLET PO SCH (08:50)
[2020-01-01] MEDS: FUROSEMIDE 40MG/4ML VIAL IVP SCH ×2 (08:50→17:35)
[2020-01-01] MEDS: INSULIN GLARGINE UD 100 UNITS/ML SYR SUBCUT SCH (10:47)
[2020-01-01] MEDS: LORAZEPAM 2MG/ML CPJ IV PRN ×2 (11:23→16:30)
[2020-01-01 16:29] LABS: BASOPHILS % 0.7 % (0.0-2.0); EOSINOPHILS % 3.7 % (0.0-5.0); HEMATOCRIT. 29.7 % (36.0-48.0); HEMOGLOBIN. 9.8 g/dL (12.0-16.0); LYMPHOCYTES % 12.9 % (20.0-50.0); MEAN CORPUSCULAR HEMOGLOBIN 27.9 pg (28.0-32.0); MEAN CORPUSCULAR VOLUME 84.7 fL (81.0-99.0); MEAN PLATELET VOLUME 8.7 fl (7.4-10.4); MONOCYTES % 6.3 % (2.0-8.0); NEUTROPHILS % 76.4 % (40.0-76.0); PLATELET 237 x1000/uL (130-400); RED CELL DISTRIBUTION WIDTH 19.3 % (11.6-14.6)
[2020-01-01 23:05] LABS: BG BASE EXCESS -1.5 mmol/L (-2.0-2.0); BG CARBOXYHEMOGLOBIN 0.5 % (0.5-1.5); BG DEOXYHEMOGLOBIN 4.6 % (0.0-5.0); BG FRACTION INSPIRED OXYGEN 50; BG HCO3 ACT 22.2 mmol/L (22.0-26.0); BG METHEMOGLOBIN 0.2 % (0.0-1.5); BG OXYGEN SATURATION 95.4 % (92.0-98.5); BG OXYHEMOGLOBIN 94.7 % (94.0-97.0); BG PCO2 34.1 mmHg (35.0-45.0); BG PH 7.432 (7.350-7.450); BG PO2 89.3 mmHg (75.0-100.0); BG SAMPLE SITE RIGHT RADIAL; BG TOTAL HEMOGLOBIN 10.9 g/dL (12.0-18.0); BG VENT MODE VAPOTHERM
[2020-01-01] MEDS: ATORVASTATIN CALCIUM 20MG TABLET PO SCH (23:32)
[2020-01-02] VITALS (10 sets, daily range): BP systolic 98–148; BP diastolic 46–81
[2020-01-02] MEDS: BLOOD SUGAR DIAGNOSTIC STRIP TEST SCH ×5 (00:11→21:24)
[2020-01-02] MEDS: INSULIN LISPRO 100 UNITS/ML SUBCUT SCH ×4 (00:18→18:52)
[2020-01-02] MEDS: INSULIN GLARGINE UD 100 UNITS/ML SYR SUBCUT SCH ×3 (00:18→21:41)
[2020-01-02] MEDS: IPRATROPIUM/ALBUTEROL 0.5-3(2.5)MG/3ML NEB HHN SCH ×7 (03:49→23:53)
[2020-01-02] MEDS ORDERED: AMLO10TA80 MT (05:53)
[2020-01-02] MEDS ORDERED: MV-M1TAB19 PO (05:55)
[2020-01-02] MEDS ORDERED: FINA1TAB18 MT (05:56)
[2020-01-02] MEDS ORDERED: CLON0.3T MT (05:58)
[2020-01-02] MEDS ORDERED: CLON0.3T PO (05:58)
[2020-01-02] MEDS: MIDODRINE HCL 5MG TABLET PO SCH ×3 (06:00→21:23)
[2020-01-02] MEDS ORDERED: HYDR-4135 PO (06:02)
[2020-01-02] MEDS ORDERED: METO100T16 MT (06:02)
[2020-01-02] MEDS ORDERED: HYDR-4135 MT ×2 (06:02)
[2020-01-02] MEDS ORDERED: PANT40TA4 MT (06:04)
[2020-01-02] MEDS ORDERED: FOLI-43 MT (06:04)
[2020-01-02] MEDS ORDERED: ISOS20TA57 MT (06:05)
[2020-01-02] MEDS ORDERED: TERA2CAP4 MT (06:05)
[2020-01-02] MEDS ORDERED: LEVO25TA7 MT (06:08)
[2020-01-02] MEDS ORDERED: FURO40TA5 MT (06:08)
[2020-01-02] MEDS ORDERED: BRIM5DRO EACHEYE (06:08)
[2020-01-02] MEDS ORDERED: ALLO100T MT (06:08)
[2020-01-02] MEDS ORDERED: TIMO5DRO32 EACHEYE (06:10)
[2020-01-02] MEDS ORDERED: SODI15OR5 PO (06:11)
[2020-01-02] MEDS: MEROPENEM 1,000 MG in SODIUM CHLORIDE 0.9% 100 ML IV SCH ×2 (06:56→16:39)
[2020-01-02 07:03] LABS: BASOPHILS % 0.6 % (0.0-2.0); EOSINOPHILS % 3.7 % (0.0-5.0); HEMATOCRIT. 29.1 % (36.0-48.0); HEMOGLOBIN. 9.6 g/dL (12.0-16.0); LYMPHOCYTES % 9.8 % (20.0-50.0); MEAN CORPUSCULAR HEMOGLOBIN 27.7 pg (28.0-32.0); MEAN CORPUSCULAR VOLUME 84.2 fL (81.0-99.0); MEAN PLATELET VOLUME 9.1 fl (7.4-10.4); MONOCYTES % 6.2 % (2.0-8.0); NEUTROPHILS % 79.7 % (40.0-76.0); PLATELET 195 x1000/uL (130-400); RED BLOOD CELL COUNT 3.46 mill/uL (4.2-5.4); RED CELL DISTRIBUTION WIDTH 19.5 % (11.6-14.6)
[2020-01-02] MEDS: FUROSEMIDE 40MG/4ML VIAL IVP SCH ×2 (07:18→16:52)
[2020-01-02] MEDS: SODIUM CHLORIDE 0.9% INJ 3ML FLUSH IVF SCH ×3 (07:18→21:24)
[2020-01-02] MEDS ORDERED: POTASSIUM CHLORIDE 20MEQ/PACKET PO NR ×2 (08:15→17:00)
[2020-01-02] MEDS: QUETIAPINE FUMARATE 25MG TABLET PO SCH ×2 (08:21→21:23)
[2020-01-02] MEDS: PANTOPRAZOLE SODIUM 40 MG/VIAL IV SCH ×2 (08:21→21:23)
[2020-01-02] MEDS: ARIPIPRAZOLE 5MG TABLET PO SCH (08:21)
[2020-01-02] MEDS: LORAZEPAM 2MG/ML CPJ IV PRN (08:36)
[2020-01-02] MEDS: ACETYLCYSTEINE 100MG/ML 10% VIAL 4ML INH SCH ×3 (08:38→23:53)
[2020-01-02 09:09] LABS: BG BASE EXCESS 1.8 mmol/L (-2.0-2.0); BG BILEVEL POS AIRWAY PRESSURE 18/5; BG CARBOXYHEMOGLOBIN 0.2 % (0.5-1.5); BG DEOXYHEMOGLOBIN 2.1 % (0.0-5.0); BG FRACTION INSPIRED OXYGEN 50; BG HCO3 ACT 26.8 mmol/L (22.0-26.0); BG METHEMOGLOBIN 0.2 % (0.0-1.5); BG OXYGEN SATURATION 97.9 % (92.0-98.5); BG OXYHEMOGLOBIN 97.5 % (94.0-97.0); BG PCO2 43.4 mmHg (35.0-45.0); BG PH 7.408 (7.350-7.450); BG PO2 119.2 mmHg (75.0-100.0); BG SAMPLE SITE LEFT RADIAL; BG TOTAL HEMOGLOBIN 11.2 g/dL (12.0-18.0); BG VENT MODE MASK - BIPAP
[2020-01-02] MEDS ORDERED: POTASSIUM CHLORIDE 20MEQ TABLET SR PO NR (13:30)
[2020-01-02 16:09] LABS: INR 1.2; PROTHROMBIN TIME 12.2 sec (9.6-11.0)
[2020-01-02] MEDS: ACETAMINOPHEN 325MG TABLET PO PRN (16:40)
[2020-01-02] MEDS: ATORVASTATIN CALCIUM 20MG TABLET PO SCH (21:23)
[2020-01-03] VITALS (12 sets, daily range): BP systolic 92–134; BP diastolic 33–77
[2020-01-03] MEDS: INSULIN LISPRO 100 UNITS/ML SUBCUT SCH ×4 (00:26→17:59)
[2020-01-03] MEDS: LORAZEPAM 2MG/ML CPJ IV PRN (01:06)
[2020-01-03] MEDS: IPRATROPIUM/ALBUTEROL 0.5-3(2.5)MG/3ML NEB HHN SCH ×5 (03:58→20:55)
[2020-01-03 05:36] LABS: BASOPHILS % 0.5 % (0.0-2.0); EOSINOPHILS % 2.9 % (0.0-5.0); HEMATOCRIT. 30.8 % (36.0-48.0); HEMOGLOBIN. 10.1 g/dL (12.0-16.0); LYMPHOCYTES % 8.1 % (20.0-50.0); MEAN CORPUSCULAR HEMOGLOBIN 27.5 pg (28.0-32.0); MEAN CORPUSCULAR VOLUME 83.7 fL (81.0-99.0); MEAN PLATELET VOLUME 8.7 fl (7.4-10.4); MONOCYTES % 8.3 % (2.0-8.0); NEUTROPHILS % 80.2 % (40.0-76.0); PLATELET 221 x1000/uL (130-400); RED BLOOD CELL COUNT 3.68 mill/uL (4.2-5.4); RED CELL DISTRIBUTION WIDTH 19.3 % (11.6-14.6)
[2020-01-03] MEDS: SODIUM CHLORIDE 0.9% INJ 3ML FLUSH IVF SCH ×3 (05:40→21:09)
[2020-01-03] MEDS: BLOOD SUGAR DIAGNOSTIC STRIP TEST SCH ×3 (05:40→17:45)
[2020-01-03] MEDS: FUROSEMIDE 40MG/4ML VIAL IVP SCH ×2 (05:40→17:44)
[2020-01-03] MEDS: MIDODRINE HCL 5MG TABLET PO SCH ×3 (05:41→21:09)
[2020-01-03] MEDS: ACETYLCYSTEINE 100MG/ML 10% VIAL 4ML INH SCH ×3 (09:00→20:54)
[2020-01-03] MEDS: PANTOPRAZOLE SODIUM 40 MG/VIAL IV SCH ×2 (09:19→20:56)
[2020-01-03] MEDS: QUETIAPINE FUMARATE 25MG TABLET PO SCH ×2 (09:20→20:56)
[2020-01-03] MEDS: ASCORBIC ACID 500 MG TABLET PO SCH (09:20)
[2020-01-03] MEDS: ARIPIPRAZOLE 5MG TABLET PO SCH (09:20)
[2020-01-03] MEDS: ZINC SULFATE 220 MG ( 50 ) CAPSULE PO SCH (09:20)
[2020-01-03] MEDS: INSULIN GLARGINE UD 100 UNITS/ML SYR SUBCUT SCH ×2 (09:58→22:42)
[2020-01-03] MEDS ORDERED: SODIUM BICARBONATE 4% (2.4MEQ) 5ML VIAL IV ONE ×2 (12:26→13:02)
[2020-01-03] MEDS: CEFTAZIDIME PENTAHYDRATE 1 G in DEXTROSE 5% WATER 50 ML IV SCH (20:56)
[2020-01-03] MEDS: ATORVASTATIN CALCIUM 20MG TABLET PO SCH (20:56)
[2020-01-03] MEDS: METRONIDAZOLE 500MG TABLET PO SCH (20:56)
[2020-01-04] VITALS (13 sets, daily range): BP systolic 102–137; BP diastolic 57–75
[2020-01-04] MEDS: ACETYLCYSTEINE 100MG/ML 10% VIAL 4ML INH SCH ×3 (00:17→16:04)
[2020-01-04] MEDS: IPRATROPIUM/ALBUTEROL 0.5-3(2.5)MG/3ML NEB HHN SCH ×6 (00:17→20:51)
[2020-01-04] MEDS: INSULIN LISPRO 100 UNITS/ML SUBCUT SCH ×5 (00:54→23:27)
[2020-01-04] MEDS: MIDODRINE HCL 5MG TABLET PO SCH ×3 (05:15→21:18)
[2020-01-04] MEDS: SODIUM CHLORIDE 0.9% INJ 3ML FLUSH IVF SCH ×3 (05:16→21:21)
[2020-01-04] MEDS: BLOOD SUGAR DIAGNOSTIC STRIP TEST SCH ×5 (05:16→23:12)
[2020-01-04] MEDS: FUROSEMIDE 40MG/4ML VIAL IVP SCH ×2 (06:55→16:38)
[2020-01-04] MEDS: ARIPIPRAZOLE 5MG TABLET PO SCH (08:40)
[2020-01-04] MEDS: CEFTAZIDIME PENTAHYDRATE 1 G in DEXTROSE 5% WATER 50 ML IV SCH ×2 (08:40→21:20)
[2020-01-04] MEDS: ZINC SULFATE 220 MG ( 50 ) CAPSULE PO SCH (08:41)
[2020-01-04] MEDS: PANTOPRAZOLE SODIUM 40 MG/VIAL IV SCH ×2 (08:41→21:16)
[2020-01-04] MEDS: METRONIDAZOLE 500MG TABLET PO SCH ×2 (08:41→21:18)
[2020-01-04] MEDS: ASCORBIC ACID 500 MG TABLET PO SCH (08:41)
[2020-01-04] MEDS: QUETIAPINE FUMARATE 25MG TABLET PO SCH ×2 (08:41→21:18)
[2020-01-04] MEDS: INSULIN GLARGINE UD 100 UNITS/ML SYR SUBCUT SCH ×2 (09:40→21:55)
[2020-01-04] MEDS: ACETAMINOPHEN 325MG TABLET PO PRN (10:25)
[2020-01-04 10:28] LABS: BASOPHILS % 0.6 % (0.0-2.0); EOSINOPHILS % 2.8 % (0.0-5.0); HEMATOCRIT. 30.7 % (36.0-48.0); HEMOGLOBIN. 10.1 g/dL (12.0-16.0); LYMPHOCYTES % 7.8 % (20.0-50.0); MEAN CORPUSCULAR HEMOGLOBIN 27.3 pg (28.0-32.0); MEAN CORPUSCULAR VOLUME 83.3 fL (81.0-99.0); MEAN PLATELET VOLUME 8.6 fl (7.4-10.4); MONOCYTES % 8.8 % (2.0-8.0); PLATELET 157 x1000/uL (130-400); RED BLOOD CELL COUNT 3.69 mill/uL (4.2-5.4)
[2020-01-04] MEDS ORDERED: INSULIN GLARGINE UD 100 UNITS/ML SYR SUBCUT NR (11:30)
[2020-01-04] MEDS ORDERED: INSULIN GLARGINE UD 100 UNITS/ML SYR SUBCUT SCH (12:00)
[2020-01-04 13:00] LABS: PHOSPHORUS 0.7 mg/dL (2.5-4.9)
[2020-01-04] MEDS ORDERED: KCL 20MEQ/100ML PREMIX 100 ML IV SCH (14:00)
[2020-01-04] MEDS ORDERED: POTASSIUM PHOS,M-BASIC-D-BASIC 20 MMOL in DEXT 5% WATER 243.3333 ML IV NR (14:30)
[2020-01-04] MEDS: LORAZEPAM 2MG/ML CPJ IV PRN ×2 (14:32→21:16)
[2020-01-04] MEDS ORDERED: MAGNESIUM 2 G PREMIX 50 ML IV NR (15:30)
[2020-01-04] MEDS: ATORVASTATIN CALCIUM 20MG TABLET PO SCH (21:18)
[2020-01-05] VITALS (11 sets, daily range): BP systolic 99–142; BP diastolic 50–78
[2020-01-05 00:23] LABS: PHOSPHORUS 2.6 mg/dL (2.5-4.9)
[2020-01-05] MEDS: IPRATROPIUM/ALBUTEROL 0.5-3(2.5)MG/3ML NEB HHN SCH ×6 (00:55→20:54)
[2020-01-05] MEDS: ACETYLCYSTEINE 100MG/ML 10% VIAL 4ML INH SCH ×2 (00:55→09:25)
[2020-01-05] MEDS: SODIUM CHLORIDE 0.9% INJ 3ML FLUSH IVF SCH ×3 (05:10→21:22)
[2020-01-05] MEDS: MIDODRINE HCL 5MG TABLET PO SCH ×3 (05:10→21:22)
[2020-01-05] MEDS: BLOOD SUGAR DIAGNOSTIC STRIP TEST SCH ×4 (05:55→23:05)
[2020-01-05] MEDS: INSULIN LISPRO 100 UNITS/ML SUBCUT SCH ×4 (05:55→23:12)
[2020-01-05 06:07] LABS: BASOPHILS % 0.7 % (0.0-2.0); EOSINOPHILS % 3.6 % (0.0-5.0); HEMATOCRIT. 30.5 % (36.0-48.0); HEMOGLOBIN. 9.9 g/dL (12.0-16.0); MEAN CORPUSCULAR HEMOGLOBIN 27.1 pg (28.0-32.0); MEAN CORPUSCULAR VOLUME 83.3 fL (81.0-99.0); MEAN PLATELET VOLUME 8.8 fl (7.4-10.4); MONOCYTES % 8.4 % (2.0-8.0); NEUTROPHILS % 77.3 % (40.0-76.0); PLATELET 135 x1000/uL (130-400); RED BLOOD CELL COUNT 3.66 mill/uL (4.2-5.4)
[2020-01-05] MEDS: CEFTAZIDIME PENTAHYDRATE 1 G in DEXTROSE 5% WATER 50 ML IV SCH ×2 (08:43→20:26)
[2020-01-05] MEDS: ARIPIPRAZOLE 5MG TABLET PO SCH (08:44)
[2020-01-05] MEDS: PANTOPRAZOLE SODIUM 40 MG/VIAL IV SCH ×2 (08:44→20:27)
[2020-01-05] MEDS: QUETIAPINE FUMARATE 25MG TABLET PO SCH ×2 (08:44→20:26)
[2020-01-05] MEDS: METRONIDAZOLE 500MG TABLET PO SCH ×2 (08:44→20:26)
[2020-01-05] MEDS: FUROSEMIDE 40MG/4ML VIAL IVP SCH ×2 (08:44→18:37)
[2020-01-05] MEDS: ZINC SULFATE 220 MG ( 50 ) CAPSULE PO SCH (08:44)
[2020-01-05] MEDS: ASCORBIC ACID 500 MG TABLET PO SCH (08:44)
[2020-01-05] MEDS: INSULIN GLARGINE UD 100 UNITS/ML SYR SUBCUT SCH ×2 (10:54→23:11)
[2020-01-05] MEDS: ATORVASTATIN CALCIUM 20MG TABLET PO SCH (20:26)
[2020-01-06] VITALS (16 sets, daily range): BP systolic 108–136; BP diastolic 32–84
[2020-01-06] MEDS: ACETAMINOPHEN 325MG TABLET PO PRN (00:22)
[2020-01-06] MEDS: IPRATROPIUM/ALBUTEROL 0.5-3(2.5)MG/3ML NEB HHN SCH ×5 (01:00→16:00)
[2020-01-06] MEDS: MIDODRINE HCL 5MG TABLET PO SCH ×3 (05:17→22:00)
[2020-01-06] MEDS: BLOOD SUGAR DIAGNOSTIC STRIP TEST SCH ×3 (05:17→18:00)
[2020-01-06] MEDS: SODIUM CHLORIDE 0.9% INJ 3ML FLUSH IVF SCH ×3 (05:21→22:42)
[2020-01-06] MEDS: INSULIN LISPRO 100 UNITS/ML SUBCUT SCH ×3 (05:23→20:03)
[2020-01-06 06:51] LABS: EOSINOPHILS % 1.8 % (0.0-5.0); HEMATOCRIT. 30.8 % (36.0-48.0); HEMOGLOBIN. 10.1 g/dL (12.0-16.0); LYMPHOCYTES % 9.9 % (20.0-50.0); MEAN CORPUSCULAR HEMOGLOBIN 27.7 pg (28.0-32.0); MEAN CORPUSCULAR VOLUME 84.8 fL (81.0-99.0); MEAN PLATELET VOLUME 10.2 fl (7.4-10.4); MONOCYTES % 6.8 % (2.0-8.0); NEUTROPHILS % 80.5 % (40.0-76.0); PLATELET 104 x1000/uL (130-400); RED BLOOD CELL COUNT 3.64 mill/uL (4.2-5.4); RED CELL DISTRIBUTION WIDTH 19.4 % (11.6-14.6)
[2020-01-06 08:56] LABS: CHLORIDE 107 mEq/L (98-107)
[2020-01-06] MEDS: CEFTAZIDIME PENTAHYDRATE 1 G in DEXTROSE 5% WATER 50 ML IV SCH ×2 (09:22→22:41)
[2020-01-06] MEDS: QUETIAPINE FUMARATE 25MG TABLET PO SCH ×2 (09:23→22:41)
[2020-01-06] MEDS: ZINC SULFATE 220 MG ( 50 ) CAPSULE PO SCH (09:23)
[2020-01-06] MEDS: ASCORBIC ACID 500 MG TABLET PO SCH (09:23)
[2020-01-06] MEDS: ARIPIPRAZOLE 5MG TABLET PO SCH (09:23)
[2020-01-06] MEDS: PANTOPRAZOLE SODIUM 40 MG/VIAL IV SCH ×2 (09:23→22:41)
[2020-01-06] MEDS: FUROSEMIDE 40MG/4ML VIAL IVP SCH ×2 (09:23→13:53)
[2020-01-06] MEDS: INSULIN GLARGINE UD 100 UNITS/ML SYR SUBCUT SCH ×2 (09:28→23:01)
[2020-01-06] MEDS: METRONIDAZOLE 500MG TABLET PO SCH ×2 (09:36→22:41)
[2020-01-06 10:55] LABS: INR 1.2; PARTIAL THROMBOPLASTIN TIME < 21.0 sec (23.4-31.0)
[2020-01-06 11:21] LABS: BG BASE EXCESS 8.7 mmol/L (-2.0-2.0); BG CARBOXYHEMOGLOBIN 0.3 % (0.5-1.5); BG DEOXYHEMOGLOBIN 6.3 % (0.0-5.0); BG FRACTION INSPIRED OXYGEN 50; BG HCO3 ACT 32.2 mmol/L (22.0-26.0); BG OXYGEN SATURATION 93.7 % (92.0-98.5); BG OXYHEMOGLOBIN 93.4 % (94.0-97.0); BG PCO2 40.3 mmHg (35.0-45.0); BG PH 7.521 (7.350-7.450); BG PO2 72.2 mmHg (75.0-100.0); BG SAMPLE SITE RIGHT RADIAL; BG TOTAL HEMOGLOBIN 11.6 g/dL (12.0-18.0); BG VENT MODE VAPOTHERM
[2020-01-07] VITALS (8 sets, daily range): BP systolic 110–136; BP diastolic 57–104
[2020-01-07] MEDS: BLOOD SUGAR DIAGNOSTIC STRIP TEST SCH ×2 (00:44→05:49)
[2020-01-07] MEDS: INSULIN LISPRO 100 UNITS/ML SUBCUT SCH ×2 (01:00→05:54)
[2020-01-07] MEDS: MIDODRINE HCL 5MG TABLET PO SCH (05:49)
[2020-01-07] MEDS: SODIUM CHLORIDE 0.9% INJ 3ML FLUSH IVF SCH (05:50)
[2020-01-07] MEDS: IPRATROPIUM/ALBUTEROL 0.5-3(2.5)MG/3ML NEB HHN SCH (08:06)
[2020-01-07 08:26] LABS: BG BASE EXCESS 4.3 mmol/L (-2.0-2.0); BG CARBOXYHEMOGLOBIN 0.3 % (0.5-1.5); BG DEOXYHEMOGLOBIN 4.2 % (0.0-5.0); BG FRACTION INSPIRED OXYGEN 50; BG HCO3 ACT 27.4 mmol/L (22.0-26.0); BG METHEMOGLOBIN 0.5 % (0.0-1.5); BG OXYGEN SATURATION 95.8 % (92.0-98.5); BG PCO2 35.5 mmHg (35.0-45.0); BG PH 7.505 (7.350-7.450); BG PO2 92.6 mmHg (75.0-100.0); BG SAMPLE SITE RIGHT RADIAL; BG TOTAL HEMOGLOBIN 12.5 g/dL (12.0-18.0); BG VENT MODE VAPOTHERM
[2020-01-07] MEDS: CEFTAZIDIME PENTAHYDRATE 1 G in DEXTROSE 5% WATER 50 ML IV SCH (10:26)
[2020-01-07] MEDS: METRONIDAZOLE 500MG TABLET PO SCH (10:27)
[2020-01-07] MEDS: PANTOPRAZOLE SODIUM 40 MG/VIAL IV SCH (10:27)
[2020-01-07] MEDS: ASCORBIC ACID 500 MG TABLET PO SCH (10:27)
[2020-01-07] MEDS: QUETIAPINE FUMARATE 25MG TABLET PO SCH (10:27)
[2020-01-07] MEDS: ZINC SULFATE 220 MG ( 50 ) CAPSULE PO SCH (10:27)
[2020-01-07] MEDS: FUROSEMIDE 40MG/4ML VIAL IVP SCH (10:27)
[2020-01-07] MEDS: ARIPIPRAZOLE 5MG TABLET PO SCH (10:27)
[2020-01-07] MEDS: INSULIN GLARGINE UD 100 UNITS/ML SYR SUBCUT SCH (10:47)
[2020-01-07] MEDS: DIPHENHYDRAMINE 50MG/ML VIAL IV PRN (10:57)
[2020-01-07] MEDS: ACETAMINOPHEN 325MG TABLET PO PRN (10:58)
== END 2020-01-07 12:20 | DRG 871 ==
LOC: ER 03:04 → UNDOADMIN 05:32 → MICUSO 05:32 → ENRESERV 11:51 → CANRESERV 11:51 → 5EST 12-24 07:25 → CVICU 12-28 02:25 → 5EST 12-30 00:04
PROVIDERS: ADMIT Internal Medicine; ATTEND Internal Medicine
PROC: 5A09457 Assistance with Respiratory Ventilation, 24-96 Consecutive Hours, Continuous Positive Airway Pressure (ICD-10-PCS; 2019-12-28)
PROC: 5A09357 Assistance with Respiratory Ventilation, Less than 24 Consecutive Hours, Continuous Positive Airway Pressure (ICD-10-PCS; 2019-12-31)
PROC: 0W9B3ZZ Drainage of Left Pleural Cavity, Percutaneous Approach (ICD-10-PCS; principal; 2020-01-03)
DX: A40.1 Sepsis due to streptococcus, group B (principal); L89.153 Pressure ulcer of sacral region, stage 3; E43 Unspecified severe protein-calorie malnutrition; J96.01 Acute respiratory failure with hypoxia; I21.4 Non-ST elevation (NSTEMI) myocardial infarction; J18.9 Pneumonia, unspecified organism; R65.21 Severe sepsis with septic shock; I50.43 Acute on chronic combined systolic (congestive) and diastolic (congestive) heart failure; N17.9 Acute kidney failure, unspecified; N39.0 Urinary tract infection, site not specified; E87.2 Acidosis; I13.0 Hypertensive heart and chronic kidney disease with heart failure and stage 1 through stage 4 chronic kidney disease, or unspecified chronic kidney disease; I38 Endocarditis, valve unspecified; R47.01 Aphasia; I44.2 Atrioventricular block, complete; J91.8 Pleural effusion in other conditions classified elsewhere; F20.9 Schizophrenia, unspecified; G40.909 Epilepsy, unspecified, not intractable, without status epilepticus; D64.9 Anemia, unspecified; E11.22 Type 2 diabetes mellitus with diabetic chronic kidney disease; E11.65 Type 2 diabetes mellitus with hyperglycemia; E78.5 Hyperlipidemia, unspecified; E87.5 Hyperkalemia; F03.90 Unspecified dementia, unspecified severity, without behavioral disturbance, psychotic disturbance, mood disturbance, and anxiety; F32.9 Major depressive disorder, single episode, unspecified; I25.10 Atherosclerotic heart disease of native coronary artery without angina pectoris; E78.00 Pure hypercholesterolemia, unspecified; I44.0 Atrioventricular block, first degree; N18.9 Chronic kidney disease, unspecified; Z20.828 Contact with and (suspected) exposure to other viral communicable diseases; R47.02 Dysphasia; Z87.440 Personal history of urinary (tract) infections; Z68.24 Body mass index [BMI] 24.0-24.9, adult; I25.2 Old myocardial infarction; Z78.1 Physical restraint status; R74.0 Nonspecific elevation of levels of transaminase and lactic acid dehydrogenase [LDH]; L89.216 Pressure-induced deep tissue damage of right hip
CPT/HCPCS: 32555; 36415; 36600; 71045; 76604; 80048; 80053; 80202; 82040; 82140; 82375; 82805; 82962; 83036; 83605; 83615; 83735; 83880; 84100; 84132; 84134; 84145; 84484; 85025; 87077; 87106; 87186; 88305; 92950; 93005; 93306; 93970; 94640; 94660; 94667; 97161; 97164; 99291; C9113; J0456; J0692; J0713; J1200; J1650; J1815; J1940; J2060; J2185; J2543; J3370; J3475; J3480; J3490; J7050; J7060; J7070; J7608; C9803-CS; U0003-CS